=== PATIENT | male | born 1945 | race Caucasian/White ===

== ENCOUNTER 2019-10-10 06:22 | Observation (INO) | payer OTHER ==
[~2019-10-10] VITALS: Ht 180.3 cm; Wt 73.1 kg
[2019-10-10] MEDS ORDERED: SODIUM CHLORIDE 0.9% 1,000 ML IV SCH ×2 (06:35→07:00)
[2019-10-10] MEDS ORDERED: LIDOCAINE 1%, 20ML ONE (06:46)
[2019-10-10 07:03] VITALS: BP 113/81
[2019-10-10] MEDS ORDERED: APIX5TAB PO (07:06)
[2019-10-10] MEDS ORDERED: ROSU20TA2 PO (07:06)
[2019-10-10] MEDS ORDERED: METO25TA35 PO (07:06)
[2019-10-10] MEDS ORDERED: LEVO175T5 PO (07:06)
[2019-10-10] MEDS ORDERED: B2/V1TAB PO (07:09)
[2019-10-10 07:25] LABS: BASOPHILS # (AUTO) 0.04 x10^3/uL (0-0.1); BASOPHILS % (AUTO) 1 % (0-1); EOSINOPHILS # (AUTO) 0.21 x10^3/uL (0-0.4); EOSINOPHILS % (AUTO) 3 % (1-7); LYMPHOCYTES # (AUTO) 1.22 x10^3/uL (1-3.4); LYMPHOCYTES % (AUTO) 18 % (22-44); MD NO; MEAN CORPUSCULAR HEMOGLOBIN 30.9 pg (27.5-34.5); MEAN CORPUSCULAR HGB CONC 32.8 g/dL (33.2-36.2); MEAN CORPUSCULAR VOLUME 94.3 fL (81-97); MEAN PLATELET VOLUME 8.9 fL (7.4-10.4); MONOCYTES # (AUTO) 0.65 x10^3/uL (0.2-0.8); MONOCYTES % (AUTO) 9 % (2-9); NEUTROPHILS # (AUTO) 4.85 x10^3/uL (1.8-6.8); NEUTROPHILS % (AUTO) 70 % (42-75); PLATELET COUNT 220 x10^3/uL (130-400); RED BLOOD COUNT 5.05 x10^6/uL (4.38-5.82); RED CELL DISTRIBUTION WIDTH 14.4 % (9.4-14.8)
[2019-10-10 07:33] LABS: ANION GAP 6 mmol/L (5-15); CALCIUM 9.1 mg/dL (8.5-10.1); CHLORIDE 111 mmol/L (98-107); CREATININE 0.98 mg/dL (0.7-1.3)
[2019-10-10] MEDS ORDERED: HEPARIN 1,000 UNITS/ML, 10ML ONE ×2 (07:44)
[2019-10-10] MEDS ORDERED: FENTANYL PF 250 MCG/5ML ONE (07:44)
[2019-10-10] MEDS ORDERED: PROPOFOL 50 ML ONE (07:44)
[2019-10-10] MEDS ORDERED: MIDAZOLAM 1 MG/ML, 2ML ONE (07:44)
[2019-10-10] MEDS ORDERED: SUCCINYLCHOLINE 20 MG/ML, 10ML ONE (07:45)
[2019-10-10] MEDS ORDERED: ROCURONIUM 10MG/ML,5ML ONE (07:45)
[2019-10-10] MEDS ORDERED: DEXAMETHASONE 4 MG/ML, 1ML ONE (07:45)
[2019-10-10] MEDS ORDERED: ONDANSETRON 2MG/ML, 2ML ONE (07:45)
[2019-10-10] MEDS ORDERED: MIDAZOLAM 1 MG/ML, 2ML IV PRN (11:00)
[2019-10-10] MEDS ORDERED: MORPHINE SULFATE 4 MG/ML, 1ML IVPush PRN (11:00)
[2019-10-10] MEDS ORDERED: ACETAMINOPHEN 325 MG TABLET PO PRN ×2 (11:00→11:30)
[2019-10-10] MEDS ORDERED: ONDANSETRON 2MG/ML, 2ML IV PRN (11:00)
[2019-10-10] MEDS ORDERED: PROMETHAZINE 25 MG/ML, 1ML IV PRN (11:00)
[2019-10-10] MEDS ORDERED: FENTANYL PF 100 MCG/2ML IV PRN (11:00)
[2019-10-10] MEDS ORDERED: EPHEDRINE 50 MG/ML, 1ML IVPush PRN (11:00)
[2019-10-10] MEDS ORDERED: DIPHENHYDRAMINE 50 MG/ML, 1ML IVPush PRN (11:00)
[2019-10-10] MEDS ORDERED: DIAZEPAM 5 MG/ML, 2ML IVPush PRN (11:00)
[2019-10-10] MEDS ORDERED: OXYcodone 5 MG/5 ML ORAL.SOL UDC PO PRN (11:00)
[2019-10-10] MEDS ORDERED: ONDANSETRON ODT 8 MG PO PRN (11:00)
[2019-10-10] MEDS ORDERED: EPHEDRINE 50 MG/ML, 1ML IM PRN (11:00)
[2019-10-10] MEDS ORDERED: PHENYLEPHRINE 10 MG/ML ONE (11:07)
[2019-10-10] MEDS ORDERED: APIXABAN 5 MG TABLET PO SCH (11:30)
[2019-10-10] MEDS: APIXABAN 5 MG TABLET PO SCH ×2 (11:40→22:00)
[2019-10-10] MEDS ORDERED: APIXABAN 5 MG TABLET ONE (11:43)
[2019-10-10 16:37] VITALS: BP 82/58
[2019-10-10 17:52] VITALS: BP 95/63
[2019-10-10] MEDS: SOTALOL 80MG TABLET PO SCH (17:53)
[2019-10-10 18:57] VITALS: BP 84/56
[2019-10-10] MEDS ORDERED: ATORVASTATIN 20 MG TABLET PO SCH (21:00)
[2019-10-11 01:30] VITALS: BP 87/57
[2019-10-11 05:59] VITALS: BP 96/61
[2019-10-11] MEDS: SOTALOL 80MG TABLET PO SCH (06:01)
[2019-10-11 07:44] VITALS: BP 97/51
[2019-10-11] MEDS ORDERED: LEVOTHYROXINE 175 MCG TABLET PO SCH (09:00)
[2019-10-11] MEDS ORDERED: MULTIVITAMIN 1 TABLET PO SCH (09:00)
[2019-10-11] MEDS: APIXABAN 5 MG TABLET PO SCH (09:38)
[2019-10-11] MEDS ORDERED: ACET325T26 PO (09:48)
[2019-10-11] MEDS ORDERED: SOTA80TA18 PO (09:48)
== END 2019-10-11 12:37 | disposition home or self-care (01) ==
LOC: CACL 06:22 → ORIP 11:28 → 5SO 16:28 → DCLOUNGE 10-11 12:29
PROVIDERS: ADMIT Internal Medicine Cardiovascular Disease; ATTEND Internal Medicine Cardiovascular Disease
DX: I48.91 Unspecified atrial fibrillation (principal); I48.92 Unspecified atrial flutter; Z79.899 Other long term (current) drug therapy; Z88.0 Allergy status to penicillin
CPT/HCPCS: 36415; 80048; 85025; 85347; 93005; 93306; 93312; 93321; 93325; 93613; 93656; 93657; 93662; C1730; C1732; C1759; C1766; C1893; C1894; G0378; J0330; J1100; J1644; J2250; J2370; J2405; J2704; J3010; J3490

== ENCOUNTER 2020-07-10 06:24 | Day surgery (SDC) | payer MEDICARE, OTHER ==
[~2020-07-10] VITALS: Ht 177.8 cm; Wt 66.0 kg
[~2020-07-10 06:24] MED LIST: ACET325T26 PO; APIX5TAB PO; B2/V1TAB PO; LEVO175T5 PO; METO25TA35 PO; ROSU20TA2 PO; SOTA80TA18 PO
[2020-07-10] MEDS ORDERED: SODIUM CHLORIDE 0.9% 1,000 ML IV SCH (06:54)
[2020-07-10 07:14] LABS: BASOPHILS # (AUTO) 0.03 x10^3/uL (0-0.1); BASOPHILS % (AUTO) 0 % (0-1); EOSINOPHILS % (AUTO) 3 % (1-7); LYMPHOCYTES # (AUTO) 1.26 x10^3/uL (1-3.4); LYMPHOCYTES % (AUTO) 13 % (22-44); MD NO; MEAN CORPUSCULAR HEMOGLOBIN 31.1 pg (27.5-34.5); MEAN CORPUSCULAR HGB CONC 32.5 g/dL (33.2-36.2); MEAN CORPUSCULAR VOLUME 95.7 fL (81-97); MEAN PLATELET VOLUME 8.4 fL (7.4-10.4); MONOCYTES # (AUTO) 0.89 x10^3/uL (0.2-0.8); MONOCYTES % (AUTO) 9 % (2-9); NEUTROPHILS # (AUTO) 7.44 x10^3/uL (1.8-6.8); NEUTROPHILS % (AUTO) 75 % (42-75); PLATELET COUNT 214 x10^3/uL (130-400); RED BLOOD COUNT 4.86 x10^6/uL (4.38-5.82); RED CELL DISTRIBUTION WIDTH 13.9 % (9.4-14.8)
[2020-07-10 07:20] VITALS: BP 106/79
[2020-07-10 07:24] LABS: CALCIUM 8.8 mg/dL (8.5-10.1); CHLORIDE 107 mmol/L (98-107); CREATININE 0.91 mg/dL (0.7-1.3)
[2020-07-10 07:32] LABS: ANION GAP 4 mmol/L (5-15)
[2020-07-10 07:40] LABS: INTERNATIONAL NORMALIZED RATIO 0.99 (0.93-1.1); PROTHROMBIN TIME 10.2 Seconds (9.6-11.5)
[2020-07-10] MEDS ORDERED: FENTANYL PF 100 MCG/2ML ONE (08:47)
[2020-07-10] MEDS ORDERED: VANCOMYCIN PMX 1GM/200ML 200 ML ONE (08:47)
[2020-07-10] MEDS ORDERED: VANCOMYCIN 500 MG ONE (08:47)
[2020-07-10] MEDS ORDERED: MIDAZOLAM 1 MG/ML, 5ML ONE (08:47)
[2020-07-10] MEDS ORDERED: LIDOCAINE 1%, 20ML ONE (08:47)
[2020-07-10] MEDS ORDERED: HOLD MEDICATION MC PRN (10:00)
[2020-07-10] MEDS ORDERED: ACETAMINOPHEN 325 MG TABLET PO PRN (10:00)
[2020-07-10] MEDS ORDERED: CLIN300C8 PO (10:05)
[2020-07-10] MEDS ORDERED: SOTALOL 80MG TABLET PO SCH (18:00)
[2020-07-10] MEDS ORDERED: ROSUVASTATIN CALCIUM PO SCH (21:00)
[2020-07-10] MEDS ORDERED: SODIUM CHLORIDE FLUSH 10ML SYR IVF SCH (21:00)
[2020-07-11] MEDS ORDERED: LEVOTHYROXINE 175 MCG TABLET PO SCH (09:00)
[2020-07-11] MEDS ORDERED: [UNRECOGNIZED DRUG - OTHER] PO SCH (09:00)
== END 2020-07-10 15:22 | disposition home or self-care (01) ==
LOC: CACL 06:24
PROVIDERS: ATTEND Internal Medicine Cardiovascular Disease
DX: Z45.02 Encounter for adjustment and management of automatic implantable cardiac defibrillator (principal); I47.2 Ventricular tachycardia; I48.0 Paroxysmal atrial fibrillation; E78.5 Hyperlipidemia, unspecified; Z79.01 Long term (current) use of anticoagulants; Z79.890 Hormone replacement therapy; Z79.899 Other long term (current) drug therapy; Z87.891 Personal history of nicotine dependence; Z88.0 Allergy status to penicillin
CPT/HCPCS: 33263; 36415; 71046; 80048; 85025; 85610; 93005; 99156; 99157; C1721; J2250; J3010; J3370